=== PATIENT | female | born 1990 | race Caucasian/White ===

== ENCOUNTER → 2019-11-27 16:39 | Outpatient (CLI) | payer BC, SELFPAY ==
[2019-11-27 19:50] LABS: Coronavirus 19 IgG Antibody Negative (Negative); Coronavirus 19 IgM Antibody Negative (Negative)
== END ==
PROVIDERS: Visit Provider Internal Medicine Gastroenterology
DX: Z01.818 Encounter for other preprocedural examination (principal); Z13.810 Encounter for screening for upper gastrointestinal disorder
CPT/HCPCS: 36415; 86328

== ENCOUNTER 2019-11-29 10:29 | Day surgery (SDC) | payer BC, SELFPAY ==
[2019-11-25 10:46] VITALS: BMI 20.9
[2019-11-29 11:26] VITALS: BP 124/68; PULSE 86; RESP 18; TEMP 36.1; O2SAT 99
[2019-11-29 11:32] LABS: Urine Pregnancy, HCG Qual. Negative (Negative)
[2019-11-29 11:55] VITALS: O2SAT 97
--- NOTE | 2019-11-29 12:17 | [facility].PROC ---
[facility] Procedure Note Procedure Note:: Upper Endoscopy Procedure Report: Esophagogastroduodenoscopy with cold biopsies and TTS balloon dilation Endoscopost: David Navarro II, MD Referring Physician: BRE Zapata Date of Procedure: November 29, 2019 Equipment: Olympus GIF 180 standard upper endoscope Sedation: MAC sedation Indications: Ms. Saucedo is a 29-year-old female with dysphagia and globus sensation. She reports dysphagia to both liquids and solids over the last year. Sometimes she will have to regurgitate food content. She has had some globus sensation. She also reports some dyspepsia with mid upper abdominal discomfort, bloating and early satiety. She reports no nausea. She reports no heartburn or reflux. She has had some intermittent chest pain and pressure with belching. She also reports bowel irregularity with alternating constipation with diarrhea. She does have some stress. Procedure: Prior to the procedure, a history and physical exam was performed, and patient's medications and allergies were reviewed. The risks, benefits and alternatives of the sedation and procedure were discussed with the patient. All questions were answered and informed consent was obtained. The patient was brought to the procedure room. Patient identification and proposed procedure were verified by the physician and the nurse. The patient was placed in a left lateral decubitus position and the scope was passed under direct vision. Throughout the procedure, the patient's blood pressure, pulse, and oxygen saturations were monitored continuously. The upper GI endoscopy was accomplished without difficulty. The patient tolerated the procedure well. Findings: The scope was passed directly into the upper esophagus and advanced to the third portion of the duodenum. The post bulbar duodenum and duodenal bulb were normal with normal mucosa and conniventes. Cold biopsies were taken from the post bulbar duodenum to rule out celiac disease. The scope was withdrawn through a normal duodenal bulb and pylorus into the stomach. There was bile reflux with mild linear reactive gastropathy of the antrum and body of the stomach. The remainder of the antrum, body and fundus of the stomach were grossly normal. Upon retroflexion there was a 2 cm hiatal hernia. 2 biopsies were taken in the antrum and along the lesser curvature for histology to rule out gastritis and/or H pylori. The scope was then withdrawn into the esophagus. There was a serrated Z-line. There was no evidence of reflux esophagitis. There were tertiary contractions and evidence of moderate esophageal dysmotility. There was no evidence of strictures, De Guzman's, Schatzki's ring or eosinophilic esophagitis. The entire esophagus was dilated to 60 [place]/20 mm with a TTS hydrostatic balloon. There was some resistance at the cricopharyngeus. The remainder of the esophageal mucosa was normal. Impression: 1. Cricopharyngeal spasm status post dilation to 20 mm 2. Nonerosive GERD with moderate esophageal dysmotility and small 2 cm hiatal hernia 3. Bile reflux with linear reactive gastropathy Plan: I will follow up the biopsies. The patient does have functional GERD with esophageal dyskinesia/spasm. She also has some functional dyspepsia and functional bowel disease/IBS. We will discuss dietary measures and treatment options. I would recommend C 13 sucrose breath testing as well. Will have her follow-up via telemedicine or in the office to assess for clinical improvement.
[2019-11-29 12:20] VITALS: BP 107/61; PULSE 84; RESP 16; TEMP 36.2; O2SAT 98
[2019-11-29 12:30] VITALS: BP 107/69; PULSE 73; RESP 18; O2SAT 100
[2019-11-29 12:40] VITALS: BP 118/73; PULSE 71; RESP 18; O2SAT 100
[2019-11-29 12:50] VITALS: BP 117/74; PULSE 72; RESP 16; O2SAT 100
== END 2019-11-29 12:50 | disposition home or self-care (01) ==
LOC: OUTP 10:36
PROVIDERS: PCP Nurse Practitioner Family; Visit Provider Internal Medicine Gastroenterology
PROC: 0DJ08ZZ Inspection of Upper Intestinal Tract, Via Natural or Artificial Opening Endoscopic (ICD-10-PCS; CPT 43235; principal; 2019-11-29 11:30)
DX: J39.2 Other diseases of pharynx (principal); K21.9 Gastro-esophageal reflux disease without esophagitis; K22.4 Dyskinesia of esophagus; K44.9 Diaphragmatic hernia without obstruction or gangrene; K31.9 Disease of stomach and duodenum, unspecified
CPT/HCPCS: 43239; 43249; 81025; C1726